=== PATIENT | female | born 2000 | race Caucasian/White ===

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

== ENCOUNTER 2022-01-16 14:46 | Emergency (ER) | payer BC, SELFPAY ==
--- NOTE | 2022-01-16 14:49 | ED.URI ---
HPI - URI/Sore Throat General Chief Complaint: Urogenital-Female Stated Complaint: uti Related Data Home Medications Medication Instructions Recorded Confirmed citalopram 10 mg tablet 10 mg PO DAILY 02/08/21 12/06/21 hydroxyzine HCl 10 mg tablet 10 mg PO TID PRN Anxiety 05/31/21 12/06/21 albuterol 90 mcg/actuation aerosol 90 mcg inhalation PRN PRN Wheezing 07/16/21 12/06/21 inhaler fluticasone propionate 50 1 spray intranasal DAILY 07/16/21 12/06/21 mcg/actuation nasal spray,suspension iron, carbonyl 45 mg tablet 45 mg PO DAILY 07/16/21 12/06/21 (Feosol) loratadine 10 mg tablet (Claritin) 10 mg PO DAILY 07/16/21 12/06/21 Allergies Allergy/AdvReac Type Severity Reaction Status Date / Time No Known Allergies Allergy Verified 11/21/21 10:25 [facility] Past Medical History Medical History Anxiety Exercise-induced asthma Fracture of phalanx of left index finger Left radial fracture Recurrent UTI Surgical History Surgical History H/O eye surgery right eye retinal repair History of placement of ear tubes History of removal of skin mole Family History Family History Grandparent Hypertension Malignant neoplasm of prostate Family history of malignant neoplasm of breast Social History Social History Smoking status: Never smoker Alcohol intake: never Substance use: never Gender identity (if verbalized by the patient): Female Sexual Orientation (if Verbalized by the Patient): Straight or Heterosexual Spiritual care concerns: No Discharge Plan Discharge Clinical Impression: Symptoms of urinary tract infection Patient Disposition: Home, Self-Care Condition: Stable Instructions: Antibiotic Form, Urinary Tract Infection in Women (ED) Additional Instructions: We will send a urine culture to the lab; if the culture identifies an organism that the prescribed antibiotic will not treat, you will receive a phone call from an urgent care staff member and an appropriate antibiotic will be prescribed. You can call in 2 days or check your portal to find the results of the culture. If your urine does not grow any bacteria you can stop the antibiotic. -Your symptoms should begin to improve within a day of starting antibiotics. But you should finish all the antibiotic pills you get. Otherwise your infection might come back. -Also recommend: increase water intake. Tylenol/ibuprofen as needed for pain or fever -Follow-up with your primary care provider for urine recheck or seek ER visit if condition worsens with high fever, nausea, vomiting and severe back pain. Prescriptions: New nitrofurantoin monohyd/m-cryst [Macrobid] 100 mg capsule 100 mg PO Q12H 5 Days Qty: 10 0RF Rx Instructions: must administer with a meal/food No Action loratadine [Claritin] 10 mg Tablet 10 mg PO DAILY fluticasone propionate [Flonase] 50 mcg/actuation [place],Suspension 1 spray INTRANASAL DAILY iron, carbonyl [Feosol] 45 mg Tablet 45 mg PO DAILY albuterol 90 mcg/actuation Aerosol 90 mcg INHALATION PRN PRN (Reason: Wheezing) citalopram 10 mg tablet 10 mg PO DAILY hydroxyzine HCl 10 mg tablet 10 mg PO TID PRN (Reason: Anxiety) drospirenone-e.estradiol-lm.FA [Beyaz] 3-0.02-0.451 mg (24) (4) tablet 1 tablet PO DAILY Qty: 84 2RF Follow-up/Referrals: UNKNOWN,DOCTOR [Primary Care Provider] - Time of Disposition: 15:05
[2022-01-16 14:54] VITALS: BP 127/86; PULSE 88; RESP 16; TEMP 37.6; O2SAT 100
--- NOTE | 2022-01-16 15:07 | ED.FEMALEGU ---
HPI - Female Genitourinary General Chief complaint: Urogenital-Female Stated complaint: uti Time Seen by Provider: 01/16/22 15:00 Source: patient and RN notes reviewed Mode of arrival: ambulatory Limitations: no limitations History of Present Illness HPI Narrative: 21-year-old female presents concern for 2-week history of urgency, dysuria. Reports trying Azo, she has not tried Azo in 2 days. She reports she was told she may have interstitial cystitis and did all the interventions her cardiology associate told her to do to help her interstitial cystitis without improvement of her current symptoms. She denies fever, body aches, chills, sweats, hematuria, back pain, nausea, vomiting. MD elicited complaint: UTI Related Data Home Medications Medication Instructions Recorded Confirmed citalopram 10 mg tablet 10 mg PO DAILY 02/08/21 12/06/21 hydroxyzine HCl 10 mg tablet 10 mg PO TID PRN Anxiety 05/31/21 12/06/21 albuterol 90 mcg/actuation aerosol 90 mcg inhalation PRN PRN Wheezing 07/16/21 12/06/21 inhaler fluticasone propionate 50 1 spray intranasal DAILY 07/16/21 12/06/21 mcg/actuation nasal spray,suspension iron, carbonyl 45 mg tablet 45 mg PO DAILY 07/16/21 12/06/21 (Feosol) loratadine 10 mg tablet (Claritin) 10 mg PO DAILY 07/16/21 12/06/21 Allergies Allergy/AdvReac Type Severity Reaction Status Date / Time No Known Allergies Allergy Verified 11/21/21 10:25 Review of Systems Review of Systems: CONSTITUTIONAL: Denies malaise, chills, sweats, or fever. CARDIOVASCULAR: Denies chest pain, palpitations, or edema. RESPIRATORY: Denies cough or dyspnea. GASTROINTESTINAL: Denies abdominal pain, nausea, vomiting, diarrhea GENITOURINARY: Reports dysuria, urgency. Denies frequency or suprapubic pressure. Denies flank pain or hematuria. SKIN: Denies rash or itching. MUSCULOSKELETAL: Denies back pain or myalgia. All systems reviewed & are unremarkable except as noted in HPI and below PMFSH Past Medical History Medical History Anxiety Exercise-induced asthma Fracture of phalanx of left index finger Left radial fracture Recurrent UTI Surgical History Surgical History H/O eye surgery right eye retinal repair History of placement of ear tubes History of removal of skin mole Family History Family History Grandparent Hypertension Malignant neoplasm of prostate Family history of malignant neoplasm of breast Social History Social History Smoking status: Never smoker Alcohol intake: never Substance use: never Gender identity (if verbalized by the patient): Female Sexual Orientation (if Verbalized by the Patient): Straight or Heterosexual Spiritual care concerns: No Comments At time of signature, agree with nursing past medical, surgical, social and family history. There is no relevant family history pertinent to the presenting complaint Exam Narrative: GENERAL: Well-appearing, well-nourished, and in no acute distress. HEAD: Normocephalic. EYES: PERRLA, conjunctivae clear. NECK: Supple. No lymphadenopathy CHEST: Clear to auscultation. No respiratory distress. HEART: Regular rate and rhythm. ABDOMEN: No CVA tenderness SKIN: Warm, dry, no rash. NEURO: Alert and oriented x3. PSYCH: Normal mood and affect Course Course Emergency Course: Discussed UA findings with patient, discussed starting an antibiotic now or waiting for culture results, patient would like to try an antibiotic now and understands that she can call and find out her culture results to find out if she needs to continue her antibiotic. Patient is aware of diagnosis, understands and agrees to treatment plan. Anticipatory guidance given. Patient agrees to follow-up as directed and is aware of reasons to seek car
== END 2022-01-16 15:15 | disposition home or self-care (01) ==
PROVIDERS: Emergency Provider Nurse Practitioner
DX: R30.0 Dysuria (principal); R39.15 Urgency of urination; F41.9 Anxiety disorder, unspecified; J45.990 Exercise induced bronchospasm
CPT/HCPCS: 81003; 87086; 99213; G0463

== ENCOUNTER 2022-05-01 17:26 | Emergency (ER) | payer BC, SELFPAY ==
[2022-05-01 17:38] VITALS: BP 117/74; PULSE 84; RESP 16; TEMP 37.4; O2SAT 100
--- NOTE | 2022-05-01 17:41 | ED.URI ---
HPI - URI/Sore Throat General Chief Complaint: Upper Respiratory Infection Stated Complaint: sore throat; wants strep test Time Seen by Provider: 05/01/22 17:45 Source: patient, RN notes reviewed and old records reviewed Mode of arrival: ambulatory Limitations: no limitations History of Present Illness HPI Narrative: 21 year old female who presents to [facility] care with complaints of sore throat for 3 day duration with increased symptoms since last night, and would like to have strep test. Patient reports that she has had some low grade temps but denies any chills or sweats. Patient does have history of asthma and denies any shortness of breath or any acute cough. MD elicited complaint: fever and sore throat Pertinent past history: asthma and seasonal allergies Onset (ago): day(s) (3) Pain scale (0-10): 4 Treatments prior to arrival: acetaminophen and ibuprofen Related Data Home Medications Medication Instructions Recorded Confirmed albuterol 90 mcg/actuation aerosol 90 mcg inhalation PRN PRN Wheezing 07/16/21 05/01/22 inhaler Allergies Allergy/AdvReac Type Severity Reaction Status Date / Time No Known Allergies Allergy Verified 05/01/22 17:29 Review of Systems Review of Systems: CONSTITUTIONAL: Denies malaise, chills, sweats, positive for low grade fever EYES: Denies visual changes, redness, or discharge. ENT: Reports rhinorrhea, congestion, no sinus pain,no otalgia positive sore throat. CARDIOVASCULAR: Denies chest pain, palpitations, or edema. RESPIRATORY: Reports no cough.? Denies dyspnea. GASTROINTESTINAL: Denies abdominal pain, nausea, vomiting, diarrhea SKIN: Denies rash or itching. MUSCULOSKELETAL: Denies myalgia. NEUROLOGIC: Denies headache. All systems reviewed & are unremarkable except as noted in HPI and below PMFSH Past Medical History Medical History Anxiety Exercise-induced asthma Fracture of phalanx of left index finger Left radial fracture Recurrent UTI Surgical History Surgical History H/O eye surgery right eye retinal repair History of placement of ear tubes History of removal of skin mole Family History Family History Grandparent Hypertension Malignant neoplasm of prostate Family history of malignant neoplasm of breast Social History Social History Smoking status: Never smoker Alcohol intake: never Substance use: never Living arrangements: with roommate(s) Occupation/Education: student Gender identity (if verbalized by the patient): Female Sexual Orientation (if Verbalized by the Patient): Straight or Heterosexual Spiritual care concerns: No Comments At time of signature, agree with nursing past medical, surgical, social and family history. There is no relevant family history pertinent to the presenting complaint Exam Narrative: GENERAL: Well-appearing, well-nourished, and in no acute distress. HEAD: Normocephalic EYES: PERRLA, conjunctivae clear ENT: Nares clear, turbinates edematous and erythematous, clear discharge. Mucous membranes moist. TM pearly romano with dull light reflex bilaterally; no tragal tenderness. Oropharynx erythematous without lesions. Tonsils red enlarged and without exudate, no drooling, no hoarseness, no trismus, uvula midline.painful swallowing. NECK: Supple. lymphadenopathy CHEST: Clear to auscultation, breath sounds equal. No wheezing, rhonchi, rales, or stridor. No respiratory distress, speaks in full sentences.no acute cough, SAO2 100% on room air HEART: Regular rate and rhythm. No murmur heard. SKIN: Warm, dry, no rash. NEURO: Alert and oriented x3. PSYCH: Normal mood and affect Course Course Emergency Course: Patient is aware of diagnosis, understands and agrees to treatmen
== END 2022-05-01 18:03 | disposition home or self-care (01) ==
PROVIDERS: Emergency Provider Registered Nurse; PCP Internal Medicine Infectious Disease
DX: J02.0 Streptococcal pharyngitis (principal); J45.990 Exercise induced bronchospasm
CPT/HCPCS: 87880; 99213; G0463

== ENCOUNTER 2022-05-22 17:13 | Emergency (ER) | payer BC, SELFPAY ==
--- NOTE | 2022-05-22 17:15 | ED.URI ---
HPI - URI/Sore Throat General Chief Complaint: Upper Respiratory Infection Stated Complaint: sore throat, trouble swallowing Time Seen by Provider: 05/22/22 17:15 Source: patient Mode of arrival: ambulatory Limitations: no limitations History of Present Illness HPI Narrative: Mirian is a 21-year-old female patient presenting to the clinic today with complaints of sore throat difficulty swallowing. She reports she was seen here 2 weeks ago and tested positive for strep and was given amoxicillin. States she has finished all her amoxicillin however her symptoms have not improved. Reports that she gets strep frequently and amoxicillin never takes care of the infection. MD elicited complaint: sore throat Related Data Home Medications Medication Instructions Recorded Confirmed albuterol 90 mcg/actuation aerosol 90 mcg inhalation PRN PRN Wheezing 07/16/21 05/22/22 inhaler buspirone 5 mg tablet 5 mg PO PRN PRN Anxiety 05/22/22 05/22/22 citalopram 10 mg tablet 10 mg PO DAILY 05/22/22 05/22/22 loratadine 10 mg tablet (Claritin) 10 mg PO DAILY 05/22/22 05/22/22 Allergies Allergy/AdvReac Type Severity Reaction Status Date / Time No Known Allergies Allergy Verified 05/22/22 17:18 Review of Systems Review of Systems: Pertinent positives per HPI. Patient denies any fever, chills, rash, headache, visual changes, dizziness, cough, shortness of breath, chest pain, palpitations, nausea, vomiting, diarrhea, constipation, abdominal pain, or any urinary issues. PMFSH Past Medical History Medical History Anxiety Exercise-induced asthma Fracture of phalanx of left index finger Left radial fracture Recurrent UTI Surgical History Surgical History H/O eye surgery right eye retinal repair History of placement of ear tubes History of removal of skin mole Family History Family History Grandparent Hypertension Malignant neoplasm of prostate Family history of malignant neoplasm of breast Social History Social History Smoking status: Never smoker Alcohol intake: never Substance use: never Living arrangements: with roommate(s) Occupation/Education: student Gender identity (if verbalized by the patient): Female Sexual Orientation (if Verbalized by the Patient): Straight or Heterosexual Spiritual care concerns: No Comments At the time of my signature, I reviewed and agree with the nursing past medical, surgical, social, and family history. There is no relevant family history pertinent to the patient complaint. Exam Narrative: General: Well-developed, well nourished, in no apparent distress Head: Normocephalic, atraumatic Eyes: Pupils equally round and reactive to light bilaterally, EOM intact, sclera and conjunctive clear, no discharge, lids normal Ears: TMs intact and clear, ear canals clear, no drainage, grossly hearing normal. Nose: Nares patent, no discharge, no inflammation, no sinus tenderness. Mouth: Oral pharynx without lesions or masses, good dentition, MMM. Oropharynx red with bilateral tonsillar swelling Neck: Supple, trachea midline, enlargement of anterior cervical nodes, no thyroid masses or goiter palpable. Cardio: Regular rate and rhythm, s1 and s2 normal, no murmur appreciated. Resp: Clear to auscultation bilaterally, no rhonchi, rales, wheezing or rubs Course Course Emergency Course: Portions of this record may have been created with voice recognition software. Level of Care: Express Care Visit Vital Signs Vital signs: Vital Signs Temperature 36.5 C 05/22/22 17:27 Pulse Rate 97 05/22/22 17:27 Respiratory Rate 16 05/22/22 17:27 Blood Pressure 139/88 05/22/22 17:27 Pulse Oximetry 100 05/22/22 17:27 Temperature 36.
[2022-05-22 17:27] VITALS: BP 139/88; PULSE 97; RESP 16; TEMP 36.5; O2SAT 100
== END 2022-05-22 17:36 | disposition home or self-care (01) ==
PROVIDERS: Emergency Provider Nurse Practitioner Family; PCP Internal Medicine Infectious Disease
DX: J02.0 Streptococcal pharyngitis (principal); F41.9 Anxiety disorder, unspecified; J45.990 Exercise induced bronchospasm
CPT/HCPCS: 87880; 99213; G0463

== ENCOUNTER 2024-07-19 08:35 | Emergency (ER) | payer BC, SELFPAY ==
--- NOTE | ~2024-07-19 | XR_ITS ---
EXAM/PROCEDURE: XR chest 2V - 07/19/2024 09:52 CDT HISTORY: 23 years old Female with SOB/cough x 1 month, hx asthma TECHNIQUE: Two view(s) of the chest. COMPARISON: None available. FINDINGS: LUNGS/ PLEURA: No focal consolidation. No appreciable pneumothorax or large pleural effusion. HEART/ MEDIASTINUM: Heart appears normal in size. BONES: No acute osseous abnormality. OTHER: Visualized upper abdomen is unremarkable. IMPRESSION: No acute process. Reviewed, dictated and finalized at location A. IMPRESSION: No acute process.
[2024-07-19 09:07] VITALS: BP 137/78; PULSE 82; RESP 16; TEMP 36.6; O2SAT 100
--- NOTE | 2024-07-19 09:35 | ED.GENADULT ---
HPI - General Adult General Chief complaint: Upper Respiratory Infection Stated complaint: COUGH Time Seen by Provider: 07/19/24 09:35 Source: patient Mode of arrival: ambulatory Limitations: no limitations History of Present Illness HPI narrative: 23-year-old female patient presents to the [facility] with complaints of a cough for the past month with some shoes intermittent shortness of breath. Patient does have history of asthma and states she has been using her albuterol inhaler every hour recently. Patient states she does take Zyrtec and Flonase daily and has been taking some Benadryl and got some cough medicine last night. Patient states she has had some mild body aches and chills for the past week denies any fever that she is aware of because she does not have the thermometer. Patient states she has had history of pneumonia and bronchitis before in the past as well. Related Data Home Medications ?Medication ?Instructions ?Recorded ?Confirmed ?Last Taken ?Type albuterol 90 mcg/actuation aerosol 90 mcg inhalation PRN PRN Wheezing 07/16/21 05/22/22 Unknown History inhaler buspirone 5 mg tablet 5 mg PO PRN PRN Anxiety 05/22/22 05/22/22 Unknown History citalopram 10 mg tablet 10 mg PO DAILY 05/22/22 05/22/22 Unknown History loratadine 10 mg tablet (Claritin) 10 mg PO DAILY 05/22/22 05/22/22 Unknown History albuterol sulfate 90 mcg/actuation inhalation 07/19/24 Unknown History aerosol inhaler gentamicin 0.3 % eye drops drp 07/19/24 Unknown History Allergies Allergy/AdvReac Type Severity Reaction Status Date / Time No Known Allergies Allergy Verified 07/19/24 09:22 Review of Systems Review of Systems: CONSTITUTIONAL: Denies fever, chills, or sweats. EYES: Denies visual changes, redness, or discharge. ENT: Denies rhinorrhea, Positive congestion, denies sore throat, or otalgia. CARDIOVASCULAR: Denies chest pain, palpitations, or edema. RESPIRATORY: positive cough with dyspnea. GASTROINTESTINAL: Denies abdominal pain, nausea, vomiting, or diarrhea. GENITOURINARY: Denies dysuria or hematuria. SKIN: Denies rash or itching. MUSCULOSKELETAL: Denies back pain, joint pain, or myalgia. NEUROLOGIC: Denies headache, numbness, or weakness. PSYCHIATRIC: Denies anxiety or depression. COUNTS INCLUDE 234 BEDS AT THE [facility] Past Medical History Medical History Fracture of phalanx of left index finger Left radial fracture Exercise-induced asthma Anxiety Recurrent UTI Surgical History Surgical History History of placement of ear tubes H/O eye surgery right eye retinal repair History of removal of skin mole Family History Family History Grandparent Hypertension Malignant neoplasm of prostate Family history of malignant neoplasm of breast Social History Social History Smoking status: Never smoker Alcohol intake: never Substance use: never Living arrangements: with roommate(s) Occupation/Education: student Gender identity (if verbalized by the patient): Female Sexual Orientation (if Verbalized by the Patient): Straight or Heterosexual Spiritual care concerns: No Comments At the time of my signature I agree with nursing past medical history, surgical, social, and family history. There is no relevant family history pertinent to the presenting complaint. Exam Narrative: GENERAL: Well-appearing, well-nourished, and in no acute distress. HEAD: Normocephalic, atraumatic. EYES: PERRLA and EOMI. ENT: Nares with erythema edema noted bilaterally, no active rhinorrhea or epistaxis. Mucous membranes moist. posterior pharynx with 1+ tonsillar enlargement but no exudates or lesions present. No erythema present. Bilateral TMs are clear no erythema or foreign bodies the canal. NECK: Supple. No lymphadenopathy CHEST: Clear to auscultation. No respiratory distress. There is coughing noted during exam. HEART: Regular rate and rhythm. No murmur heard. Normal peripheral pulses. ABDOMEN: Soft, nontender, nondistended, normal active bowel sounds. EXTREMITIES: Normal range of motion. No edema. SKIN: Warm, dry, no rash. NEURO: No focal deficits. Alert and oriented x3. Course Course Level of Care: Express Care Visit Reevaluation(s) Reevaluation #1: re-evaluated patient notified her that her x-rays negative for any acute pneumonia. Discussed with her this is most likely a bronchitis due to his ongoing bronchial spasm causing the cough. Discussed with patient we will discharge her home with some oral steroids continue using her albuterol inhaler 2 puffs every 4 hours as needed for coughing and shortness of breath and I will also give her some Tessalon Perles to help with coughing in between her albuterol. Patient verbalized understanding denies any other questions or concerns at this time. Date: 07/19/24 Time: 10:12 Vital Signs Vital signs: Vital Signs Temperature 36.6 C 07/19/24 09:07 Pulse Rate 82 07/19/24 09:07 Respiratory Rate 16 07/19/24 09:07 Blood Pressure 137/78 07/19/24 09:07 Pulse Oximetry 100 07/19/24 09:07 Temperature 36.6 C 07/19/24 09:07 Pulse Rate 82 07/19/24 09:07 Respiratory Rate 16 07/19/24 09:07 Blood Pressure 137/78 07/19/24 09:07 Pulse Oximetry 100 07/19/24 09:07 Vital signs reviewed. The patient has been informed that they may have pre-hypertension or Hypertension based on a BP reading in the department. I recommend that the patient call the primary care provider listed on their discharge instructions or a physician of their choice this week to arrange follow up for further evaluation of possible pre-hypertension or Hypertension Medical Decision Making MDM Narrative Medical decision making narrative: Plan of care for patient is to obtain a chest x-ray to rule out pneumonia since she has had this in the past and does report some body aches and chills over the past week. Discussed with patient if the x-ray is negative most likely will treat her for an asthma exacerbation/ bronchitis with oral steroids along with her albuterol inhaler. Patient verbalized understanding denies any other questions or concerns at this time. Differential Diagnosis Differential Diagnosis: Differential diagnosis: Allergic rhinitis, chronic sinusitis, tonsillitis, acute sinusitis, infectious mononucleosis, seasonal influenza, pertussis, diphtheria, meningococcal disease, viral syndrome, viral bronchitis, RSV, COVID-19 Vital Signs Vital Signs: Vital Signs Temperature 36.6 C 07/19/24 09:07 Pulse Rate 82 07/19/24 09:07 Respiratory Rate 16 07/19/24 09:07 Blood Pressure 137/78 07/19/24 09:07 Pulse Oximetry 100 07/19/24 09:07 Temperature 36.6 C 07/19/24 09:07 Pulse Rate 82 07/19/24 09:07 Respiratory Rate 16 07/19/24 09:07 Blood Pressure 137/78 07/19/24 09:07 Pulse Oximetry 100 07/19/24 09:07 Lab Data Labs: Lab Results 07/19/24 Range/Units 09:52 POC Urine HCG, Qual Negative (Negative) Imaging Data Radiologist's impression: [facility] [address] [place] [address] XRay Report Signed Patient: Mirian Casas : 2000 MR#: [id number] Age: 23 Acct:[id number] Loc: [facility] ADM Date: 07/19/24Attending Dr: Ordering Physician: Melissa Forrester [employer] Date of Service: 07/19/24 Procedure(s): XR chest 2V Accession Number(s): [id number] cc: Josselyn, Elvin; Melissa Forrester [employer]~ EXAM/PROCEDURE: XR chest 2V - 07/19/2024 09:52 CDT HISTORY: 23 years old Female with SOB/cough x 1 month, hx asthma TECHNIQUE: Two view(s) of the chest. COMPARISON: None available. FINDINGS: LUNGS/ PLEURA: No focal consolidation. No appreciable pneumothorax or large pleural effusion. HEART/ MEDIASTINUM: Heart appears normal in size. BONES: No acute osseous abnormality. OTHER: Visualized upper abdomen is unremarkable. IMPRESSION: No acute process. Reviewed, dictated and finalized at location A. Critical Care Time Critical Care Time Critical Care Time: No Discharge Plan Discharge Clinical Impression: Acute viral bronchitis Patient Disposition: Home Condition: Stable Instructions: Antibiotic Form, Acute Bronchitis (ED) Additional Instructions: Acute bronchitis is swelling and irritation in the air passages of your lungs. This irritation may cause you to cough or have other breathing problems. Acute bronchitis often starts because of another viral illness, such as a cold or the flu. The illness spreads from your nose and throat to your windpipe and airways. Bronchitis is often called a chest cold. Acute bronchitis lasts about 2-6 weeks and is usually not a serious illness. AFTER YOU LEAVE: Medicines: Ibuprofen or acetaminophen: These medicines help lower a fever. They are available without a doctor's order. Ask your healthcare provider which medicine is right for you. Ask how much to take and how often to take it. Follow directions. These medicines can cause stomach bleeding if not taken correctly. Ibuprofen can cause kidney damage. Do not take ibuprofen if you have kidney disease, an ulcer, or allergies to aspirin. Acetaminophen can cause liver damage. Do not drink alcohol if you take acetaminophen. Cough medicine: This medicine helps loosen mucus in your lungs and make it easier to cough up. This can help you breathe easier. Inhalers: You may need one or more inhalers to help you breathe easier and cough less. An inhaler gives your medicine in a mist form so that you can breathe it into your lungs. Ask your healthcare provider to show you how to use your inhaler correctly. Steroid medicine: Steroid medicine helps open your air passages so you can breathe easier. Take your medicine as directed. Call your healthcare provider if you think your medicine is not helping or if you have side effects. How to use an inhaler: Shake the inhaler well to make sure you get the correct amount of medicine per puff. Remove the cover from your inhaler's mouthpiece. If you are using a spacer, connect your inhaler to the flat end of the spacer. Exhale as much air from your lungs as you can. Put the mouthpiece in your mouth past your front teeth and rest it on the top of your tongue. Do not block the mouthpiece opening with your tongue. Breathe in through your mouth at a slow and steady rate. As you do this, press the inhaler to release the puff of medicine. Finish breathing in slowly and deeply as you inhale the medicine. When your lungs are full, hold your breath for 10 seconds. Then breathe out slowly through puckered lips or through your nose. If you need to take more puffs, wait at least 1 minute between each puff. Rinse your mouth with water after you use the inhaler. This may keep you from getting a mouth infection or irritation. Follow the instructions that come with your inhaler to clean it. You should clean your inhaler at least once a week. Ways to care for yourself: Avoid alcohol: Alcohol dulls your urge to cough and sneeze. When you have bronchitis, you need to be able to cough and sneeze to clear your air passages. Alcohol also causes your body to lose fluid. This can make the mucus in your lungs thicker and harder to cough up. Avoid irritants in the air: Do not smoke or allow others to smoke around you. Avoid chemicals, fumes, and dust. Wear a face mask if you must work around dust or fumes. Stay inside on days when air pollution levels are high. If you have allergies, stay inside when pollen counts are high. Avoid aerosol products. This includes spray-on deodorant, bug spray, and hair spray. Drink more liquids: Most people should drink at least 8 eight-ounce cups of water a day. You may need to drink more liquids when you have acute bronchitis. Liquids help keep your air passages moist and help you cough up mucus. Get more rest: You may feel like resting more. Slowly start to do more each day. Rest when you feel it is needed. Eat healthy foods: Eat a variety healthy foods every day. Your diet should include fruits, vegetables, breads, and protein (such as chicken, fish, and beans). Dairy products (such as milk, cheese, and ice cream) can sometimes increase the amount of mucus your body makes. Ask if you should decrease your intake of dairy products. Use a humidifier: Use a cool mist humidifier to increase air moisture in your home. This may make it easier for you to breathe and help decrease your cough. Decrease your risk of acute bronchitis: Get the vaccinations you need: Ask your healthcare provider if you should get vaccinated against the flu or pneumonia. Avoid things that may irritate your lungs: Stay inside or cover your mouth and nose with a scarf when you are outside during cold weather. You should also stay inside on days when air pollution levels are high. If you have allergies, stay inside when pollen counts are high. Avoid using aerosol products in your home. This includes spray-on deodorant, bug spray, and hair spray. Avoid the spread of germs: Wash your hands often with soap and water. Carry germ-killing gel with you. You can use the gel to clean your hands when there is no soap and water available. Do not touch your eyes, nose, or mouth unless you have washed your hands first. Always cover your mouth when you cough. Cough into a tissue or your shirtsleeve so you do not spread germs from your hands. Try to avoid people who have a cold or the flu. If you are sick, stay away from others as much as possible. Follow up with your healthcare provider as directed: Write down questions you have so you will remember to ask them during your follow-up visits. Contact your healthcare provider if: You have a fever. Your skin becomes itchy or you have a rash after you take your medicine. Your breathing problems do not go away or get worse. Your cough does not get better with treatment. You cough up blood. You have questions or concerns about your condition or care. Seek care immediately or call 911 if: You faint. Your lips or fingernails turn blue. You feel like you are not getting enough air when you breathe. You have swelling of your lips, tongue, or throat that makes it hard to breathe or swallow. Patient Language: Turkish Prescriptions: New benzonatate 200 mg capsule 200 mg PO TID PRN (Reason: cough) 10 Days Qty: 30 0RF prednisone 20 mg tablet 40 mg PO DAILY 5 Days Qty: 10 0RF No Action albuterol 90 mcg/actuation Aerosol 90 mcg INHALATION PRN PRN (Reason: Wheezing) citalopram 10 mg tablet 10 mg PO DAILY buspirone 5 mg tablet 5 mg PO PRN PRN (Reason: Anxiety) loratadine [Claritin] 10 mg Tablet 10 mg PO DAILY gentamicin 0.3 % drops albuterol sulfate 90 mcg/actuation HFA aerosol inhaler INHALATION drospirenone-e.estradiol-lm.FA [Beyaz] 3-0.02-0.451 mg (24) (4) tablet 1 tablet PO DAILY Qty: 84 0RF Follow-up/Referrals: Josselyn,MD Elvin [Primary Care Provider] - Time of Disposition: 10:09
[2024-07-19 09:53] LABS: BEDSIDEPREGUCG Negative (Negative)
== END 2024-07-19 10:17 | disposition home or self-care (01) ==
PROVIDERS: Emergency Provider Nurse Practitioner Family; PCP Internal Medicine Infectious Disease
DX: J20.8 Acute bronchitis due to other specified organisms (principal); Z79.899 Other long term (current) drug therapy
CPT/HCPCS: 71046; 81025; 99213; G0463

== ENCOUNTER 2024-12-29 09:50 | Emergency (ER) | payer BC, SELFPAY ==
[2024-12-29 10:02] VITALS: BP 118/87; PULSE 80; RESP 18; TEMP 36.3; O2SAT 100
--- NOTE | 2024-12-29 10:48 | ED.URI ---
HPI - URI/Sore Throat General Chief Complaint: Upper Respiratory Infection Stated Complaint: sinus infection Time Seen by Provider: 12/29/24 10:48 Source: patient, RN notes reviewed and old records reviewed Mode of arrival: ambulatory Limitations: no limitations History of Present Illness HPI Narrative: 24-year-old female presents to the [facility] with complaints of head congestion, sinus congestion for 8 days. Denies sore throat, denies fevers. Take Zyrtec, Flonase and Sudafed. Related Data Home Medications ?Medication ?Instructions ?Recorded ?Confirmed ?Last Taken ?Type albuterol 90 mcg/actuation aerosol 90 mcg inhalation PRN PRN Wheezing 07/16/21 12/29/24 Unknown History inhaler buspirone 5 mg tablet 5 mg PO PRN PRN Anxiety 05/22/22 12/29/24 Unknown History citalopram 10 mg tablet 10 mg PO DAILY 05/22/22 12/29/24 Unknown History Allergies Allergy/AdvReac Type Severity Reaction Status Date / Time No Known Allergies Allergy Verified 12/29/24 10:02 Review of Systems Review of Systems: All systems reviewed & are unremarkable except as noted in HPI and below Constitutional: Constitutional: Reports no additional constitutional complaints ENT: Reports as per HPI, Reports otalgia and Reports sinus pain Cardiovascular: Cardiovascular: Reports no additional cardiovascular complaints, Denies chest pain and Denies dyspnea Respiratory: Respiratory: Reports no additional respiratory complaints, Denies chest congestion, Denies cough and Denies dyspnea Musculoskeletal: Musculoskeletal: Reports no additional musculoskeletal complaints Integumentary/Breasts: Skin/Breast: Reports system reviewed and no additional complaints, except as docu PMFSH Past Medical History Medical History Fracture of phalanx of left index finger Left radial fracture Exercise-induced asthma Anxiety Recurrent UTI Surgical History Surgical History History of placement of ear tubes H/O eye surgery right eye retinal repair History of removal of skin mole Family History Family History Grandparent Hypertension Malignant neoplasm of prostate Family history of malignant neoplasm of breast Social History Social History (Reviewed 12/29/24 @ 18:17 by BRETT Ryan Smoking status: Never smoker Alcohol intake: never Substance use: never Living arrangements: with roommate(s) Occupation/Education: student Gender identity (if verbalized by the patient): Female Sexual Orientation (if Verbalized by the Patient): Straight or Heterosexual Spiritual care concerns: No Comments At the time of my signature, I reviewed and agree with the nursing past medical, surgical, social, and family history. There is no relevant family history pertinent to the patient complaint. Exam Const: General: cooperative, healthy appearing, comfortable, no acute distress, well developed, alert and well nourished Nutritional Appearance: well nourished Orientation/consciousness: patient oriented x3 Limitations: no limitations HENMT: Head: normal to inspection Ears: hearing grossly normal bilaterally, external ears normal, EAC's normal, mastoids normal, no periauricular adenopathy and TM abnormal bulging and erythematous on the right Face/Nose/Sinus: Normal external nose present and Abnormal mucous membranes and turbinates present boggy; not erythematous Mouth: Yes Normal oral and palatal mucosa present, Yes lip normal, Yes tongue normal and Yes moist mucous membranes Throat: posterior oropharynx normal, uvula midline, postnasal drainage and no uvular edema Eyes: General: appearance normal, both eyes and all related structures Alignment and Position: alignment normal Neck: Neck: normal visual inspection, full ROM, no lymphadenopathy and no meningeal signs Chest: Chest palpation & inspection: normal inspection of the chest Resp: Effort & Inspection: normal respiratory effort and able to speak in complete sentences Auscultation: clear to auscultation bilaterally, no crackles, no rales, no rhonchi and no wheezes Cardio: Rate: regular rate Skin: General skin exam: normal color and no rashes or lesions noted Neuro: General: patient oriented x3, gait normal, moves all extremities and no meningeal signs Cognition (Neuro): normal cognition Speech: normal speech Gait exam (Neuro): Normal gait present Extrem: General: normal to inspection, full ROM, capillary refill normal and normal gait Psych: Appearance: grossly normal and well kempt Mental Status: mental status grossly normal Speech and movement: Normal speech and movement present and Clear speech present Affect: normal affect Attitude: cooperative Course Course Level of Care: Express Care Visit Vital Signs Vital signs: Vital Signs Temperature 97.3 F L 12/29/24 10:02 Pulse Rate 80 12/29/24 10:02 Respiratory Rate 18 12/29/24 10:02 Blood Pressure 118/87 12/29/24 10:02 Pulse Oximetry 100 12/29/24 10:02 Oxygen Delivery Room Air 12/29/24 10:02 Temperature 97.3 F L 12/29/24 10:02 Pulse Rate 80 12/29/24 10:02 Respiratory Rate 18 12/29/24 10:02 Blood Pressure 118/87 12/29/24 10:02 Pulse Oximetry 100 12/29/24 10:02 Oxygen Delivery Room Air 12/29/24 10:02 Reviewed MDM - URI/Sore Throat MDM Narrative Medical decision making narrative: Patient sitting in exam room. Patient is nontoxic, vitals stable. Patient presents with a day history of sinus congestion, has tried [id number] products with no relief. Exam right otitis media, bulging, erythematous. Patient is appropriate for outpatient treatment with close follow-up Discharge instructions reviewed with patient, as well as provided in writing per nursing staff. The instructions also include specific and strict return/GO TO THE ER as well as f/u information. All questions have been answered, and the patient deny any further questions with discharge and discharge plan. Some parts of this dictation were generated by voice recognition software and may contain typographical and/or grammatical inaccuracies. Differential Diagnosis Differential diagnosis: Likely upper respiratory infection, otitis media, sinusitis, viral infection, bronchitis, influenza and pharyngitis Critical Care Time Critical Care Time Critical Care Time: No Discharge Plan Discharge Clinical Impression: Acute right otitis media Sinusitis Qualifiers: Sinusitis location: pansinusitis Chronicity: acute Recurrence: not specified as recurrent Qualified Code(s): J01.40 - Acute pansinusitis, unspecified Patient Disposition: Home Condition: Stable Instructions: Antibiotic Form, Sinusitis (ED), Ear Infection (GEN) Additional Instructions: It is very important to treat your symptoms. Drink plenty of water, Gatorade, Pedialyte, ice pops or Jell-O. -Alternate Tylenol and Motrin per package directions for fever or pain. You can alternate every 4 hours -Antihistamine medication such as Zyrtec/Claritin/Katty during the day can help improve symptoms. -doing daily nasal irrigations can help relieve pressure your sinuses. Things like a Neti pot -Use Flonase twice a day for 5 days then daily to help reduce the inflammation and dry up your sinuses. -You can also use Mucinex. Be sure to drink plenty of water with this medication at least 8 ounces with every dose and it is important to drink 8 to 10 glasses of water per day. Water is a natural decongestant -Eat and drink things that are easy to swallow, like tea or soup, or popsicles. -Oral rinses such as: Salt water gargles and/or may use topical anesthetic (eg. Chloraseptic spray) or lozenges to relieve dryness or throat pain). -Frequent hand washing or hand office analyst is one of the best ways to prevent spread of infection. -Using a vaporizer or humidifier at night will also help thin secretions and help with coughing up phlegm. -Follow up with primary care provider in 7-10 days if condition is not improving - For new or worsening symptoms go directly to the nearest ER Patient Language: Turkish Prescriptions: New amoxicillin-pot clavulanate 875-125 mg tablet 1 tablet PO Q12H Qty: 14 0RF No Action albuterol 90 mcg/actuation Aerosol 90 mcg INHALATION PRN PRN (Reason: Wheezing) citalopram 10 mg tablet 10 mg PO DAILY buspirone 5 mg tablet 5 mg PO PRN PRN (Reason: Anxiety) Follow-up/Referrals: Josselyn,MD Elvin [Primary Care Provider] - 2 Weeks Clinical Impression: Acute right otitis media; Sinusitis Stand Alone Forms: Work/School Release IP Time of Disposition: 10:58
== END 2024-12-29 11:11 | disposition home or self-care (01) ==
PROVIDERS: Emergency Provider Nurse Practitioner; PCP Internal Medicine Infectious Disease
DX: H66.91 Otitis media, unspecified, right ear (principal); J01.40 Acute pansinusitis, unspecified; J45.990 Exercise induced bronchospasm; F41.9 Anxiety disorder, unspecified
CPT/HCPCS: 99213; G0463